=== PATIENT | male | born 2000 | race Caucasian/White ===

== ENCOUNTER 2022-09-09 21:28 | Emergency (ER) | payer MEDICAID ==
[~2022-09-09] VITALS: Ht 182.9 cm; Wt 72.6 kg
[2022-09-09 22:21] VITALS: BP 130/90
--- NOTE | 2022-09-09 22:25 | NUR ---
TO LOBBY A/W BED AMBULATORY
--- NOTE | 2022-09-10 00:17 | NUR ---
PT TO BED 2
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
[2022-09-10] MEDS ORDERED: IBUPROFEN 600 MG TAB PO ONE (01:35)
[2022-09-10] MEDS ORDERED: CRUSHER, PILL MC ONE (01:45)
--- NOTE | 2022-09-10 01:50 | NUR ---
PT SEEN LEAVING TOWARD EXIT AND ASKED IF PT WAS LEAVING TO WHICH PT RESPONDED "NO, I'M JUST GOING TO GET SOMETHING".
--- NOTE | 2022-09-10 02:30 | NUR ---
PT NEVER RETURNED TO FACILITY. UNABLE TO FIND IN LOBBY OR OUTSIDE. PT ELOPED AT THIS TIME.
== END 2022-09-10 01:50 | disposition left against medical advice (07) ==
LOC: MED 21:28
DX: S40.021A Contusion of right upper arm, initial encounter (principal); Y04.8XXA Assault by other bodily force, initial encounter; Y93.89 Activity, other specified; Y92.89 Other specified places as the place of occurrence of the external cause; Y99.8 Other external cause status
CPT/HCPCS: 73060; 99283